=== PATIENT | male | born 1980 | race Caucasian/White ===

== ENCOUNTER → 2016-08-17 | Outpatient (CLI) | payer OTHER | END | disposition home or self-care (01) | LOC: C.LAB 16:51 | DX: Z02.83 Encounter for blood-alcohol and blood-drug test (principal) ==

== ENCOUNTER 2017-03-05 15:05 | Emergency (ER) | payer BC, OTHER ==
[~2017-03-05] VITALS: Ht 182.9 cm; Wt 91.4 kg
[2017-03-05 15:08] VITALS: TEMP 36.9; Ht 182.9 cm; Wt 91.4 kg
[2017-03-05] MEDS ORDERED: LIDOCAINE/EPINEPHRINE 1% 20 ML VIAL INFIL ONE (15:30)
--- NOTE | 2017-03-05 15:54 | EMERGENCY ROOM VISIT NOTE ---
ED Visit Note First contact with patient: 15:10 CHIEF COMPLAINT: Hand laceration HISTORY OF PRESENT ILLNESS: This 36-year-old male patient presents to the emergency department approximately 30 minutes after cutting the posterior left hand with a circular-shaped knife at work at [employer]. He states he passed out immediately after the injury, and states he slid down the wall when he passed out. He denies head or neck injury. The bleeding has not stopped. Denies weakness or numbness of the hand or fingers. The patient rates the pain as severe initially, and 0/10 now. The patient denies any other injuries. The patient's Tetanus shot is up to date. REVIEW OF SYSTEMS: A 6 system review of systems was completed with positives and pertinent negatives listed in the HPI. ALLERGIES: Amoxicillin? MEDICATIONS: None PMH: None SOCIAL HISTORY: Lives locally with family. He denies drug, alcohol use. The patient admits to current tobacco use. PHYSICAL EXAM: Vital Signs: Reviewed Nurse's notes, vital signs stable. GENERAL : This is a 36-year-old white male, in no acute distress, well-developed, well- nourished. SKIN: There is a 2 cm long laceration on the dorsal aspect of the left hand over the second metacarpal bone. This is an a half matias shape, and the skin does lie flat over the wound. The edges gape apart with traction. There is no foreign material in the wound and it looks clean. There is minimal bleeding. It does appear that the sensor tendon is severed on examination. Otherwise, no deep structures such as bones or significant blood vessels are seen in the base of the wound. Normal strength and movement of the fingers and wrist. Capillary refill less than 2 seconds. Normal sensation to light and sharp touch. EMERGENCY DEPARTMENT COURSE: I examined the patient. Verbal consent was obtained to perform the procedure. Using sterile technique the wound was cleansed with Betadine. The area was sterilely draped. 4 ml of 1% lidocaine with epinephrine was used to anesthetize the laceration on the hand. Once the patient was anesthetized, the wound was copiously irrigated under pressure with sterile saline. The wound was explored and was as described above. I did consult with orthopedics at this time due to the severed tendon. He did recommend loose sutures to close the wound, a metal splint, and follow-up in the office next week. Dr. Riggins said antibiotics are not necessary at this time with a clean cut and washing out the wound. The laceration was repaired using 5 simple interrupted 5-0 nylon sutures with the wound edges being well approximated. The patient tolerated the procedure well. Hemostasis was achieved. The area was cleaned with sterile saline and dressed with bacitracin ointment and bandage. A metal splint was applied with the finger in extension. The patient was discharged home in good condition. DIFFERENTIAL DIAGNOSIS: Laceration, contusion, tendon rupture, fracture, and others DIAGNOSIS: Hand laceration with severed tendon Current/Historical Medications No Active Prescriptions or Reported Meds Allergies Coded Allergies: No Known Allergies (Unverified , 03/05/17) Vital Signs Date Time Temp Pulse Resp B/P (MAP) Pulse Ox O2 Delivery O2 Flow Rate FiO2 03/05/17 16:04 68 18 102/67 98 Room Air 03/05/17 15:08 36.9 66 18 137/79 98 Medications Administered Medications (Trade) Dose Ordered Sig/Zay Route Start Time Stop Time Status Last Admin Dose Admin Lidocaine/ Epinephrine (Xylocaine/Epine 1% Inj) 20 ml ONE ONCE INFIL 03/05/17 15:30 03/05/17 15:31 DC 03/05/17 15:28 20 ML Departure Information Impression Primary Impression: Laceration of hand involving extensor tendon Dispostion Home / Self-Care Condition GOOD Prescriptions No Active Prescriptions or Reported Meds Referrals No Doctor, Assigned (PCP) Mamadou Riggins MD Patient Instructions ED Laceration Ext Sutr Stap Tape, ED Laceration Tendon, [facility] Additional Instructions You have received 5 sutures on your left hand. These sutures are NOT dissolvable and WILL need to be removed by a health care provider in 8-10 days ( or as recommended by Dr. Riggins). You can return to the Emergency Department or contact your Primary Care Provider to have the sutures removed. Proper wound care is essential for adequate wound healing and infection prevention. You can shower and clean the wound with soap and water. Do not scour over the wound, pat dry with a towel. Do not submerse the wound (i.e. bathe or dish wash) until the sutures have been removed. You can use an antibiotic ointment with a dressing over the wound for the next 3-4 days. After this time you may leave the wound dry and open to the air. If crust develops over the wound you can use a Q-tip to apply a 1:1 peroxide:water solution to clean the wound. Look for signs of infection of the wound including: increased pain, swelling, foul discharge, streaking, or increased temperature. If any of these are noticed you should return to the Emergency Department for further assessment and treatment. As with any laceration you may have received nerve damage to the surrounding tissues. This damage may or may not be permanent. You should keep the area covered with sunscreen for the first 6 months to 1 year when at risk for exposure to help minimize scarring. You can also use scar reducing creams or Vitamin E oil to help minimize scarring. For pain control, you can use the following [id number]-xbs-[id number] medicines (if >12 yo): Ibuprofen(Motrin, Advil) may be used for fever or pain. Use 600mg every six hours as needed. Take with food. Avoid using more than 2400mg in a 24 hour period. Do not use 2400mg per day for more than three consecutive days without physician direction. Prolonged inappropriate use can lead to stomach upset or ulcers. (AND/OR) Acetaminophen(Tylenol) may be used for fever or pain. Use 1000mg every six hours as needed. Avoid using more than 3000mg in a 24 hour period. You did sever a tendon, so will need to keep the metal splint in place until follow-up with orthopedics. If you need to remove the splint to change the bandage, you may do this, but keep your finger/hand straight and do not bend it. Please contact [facility] today to schedule a follow-up for Wednesday or Wednesday with Dr. Riggins. He is in [place] on Wednesday, and [place] on Wednesday. You have been provided with the phone number. If you have problems scheduling the appointment, please contact the Emergency Department for assistance. Return to the emergency department if your symptoms worsen despite treatment course outlined above. Work Instructions Return To Work: 3 days Problem Qualifiers Primary Impression: Laceration of hand involving extensor tendon Encounter type: initial encounter Laterality: left Qualified Codes: S61.412A - Laceration without foreign body of left hand, initial encounter
[2017-03-05 16:04] VITALS: BP 102/67; PULSE 68; O2SAT 98
== END 2017-03-05 16:57 | disposition home or self-care (01) ==
LOC: C.EDB 15:06 → C.EDD 16:57
DX: S61.412A Laceration without foreign body of left hand, initial encounter (principal); S66.321A Laceration of extensor muscle, fascia and tendon of left index finger at wrist and hand level, initial encounter; R55 Syncope and collapse; W26.0XXA Contact with knife, initial encounter; Y99.0 Civilian activity done for income or pay; F17.200 Nicotine dependence, unspecified, uncomplicated

== ENCOUNTER 2017-08-18 08:57 | Emergency (ER) | payer OTHER ==
[~2017-08-18] VITALS: Ht 182.9 cm; Wt 88.9 kg
[2017-08-18 09:17] VITALS: TEMP 36.9; Ht 182.9 cm; Wt 88.9 kg
[2017-08-18] MEDS ORDERED: CIPROFLOXACIN 500 MG TAB PO STA (09:28)
[2017-08-18] MEDS ORDERED: CEPHALEXIN MONOHYDRATE 250 MG CAP PO ONE (09:30)
--- NOTE | 2017-08-18 10:12 | DIAGNOSTIC IMAGING REPORT ---
L FOOT MIN 3 VIEWS ROUTINE CLINICAL HISTORY: 37 years-old Male presenting with L FOOT INJURY, great toe pain. TECHNIQUE: Frontal, oblique, and lateral views of the left foot were obtained. COMPARISON: None. FINDINGS: No acute fracture or malalignment. No advanced degenerative change. No radiographic soft tissue abnormality. IMPRESSION: No acute osseous injury or radiopaque foreign body. Electronically signed by: Roc Lang M.D. 08/18/2017 10:10 AM Dictated Date/Time: 08/18/2017 10:09 AM
[2017-08-18 10:47] VITALS: BP 128/85; PULSE 76; O2SAT 95
[2017-08-18] MEDS ORDERED: CEPH500C PO (10:57)
[2017-08-18] MEDS ORDERED: CIPR-255 PO (10:57)
--- NOTE | 2017-08-18 16:01 | EMERGENCY ROOM VISIT NOTE ---
History First contact with patient: 09:08 Chief Complaint: FOOT PAIN Stated Complaint: LEFT FOOT BEHIND BIG TOE PAIN - DROP METAL ON FOOT History of Present Illness The patient is a 37 year old male who presents to the Emergency Room with complaints of a puncture wound to his left foot. The patient reports that this injury happened last night around 6:40 PM. He reports that a piece of metal penetrated his boot just behind the steel toe, and cut the foot. The patient reports that he did not have any significant discomfort until last evening. The patient reports that when he awoke this morning, the pain was worse. When he got to work, he could not tolerate the pain, and took Tylenol. He now presents with complaint of mild redness of the foot. The pain is worsened with weightbearing. The patient rates his discomfort a 10 out of 10. Tetanus immunization is up-to-date. Review of Systems 10 system review was performed and was negative except for pertinent positives and negatives as indicated in history of present illness Past Medical/Surgical History Medical Problems: (1) Tobacco use disorder Surgical Problems: (1) No history of previous surgery Family History Unremarkable Social History Smoking Status: Current Every Day Smoker Alcohol Use: occasionally Marital Status: Housing Status: lives with family Occupation Status: employed Current/Historical Medications Scheduled Cephalexin Monohydrate (Keflex), 500 MG PO QID Ciprofloxacin Hcl (Cipro), 500 MG PO BID Physical Exam Vital Signs Date Time Temp Pulse Resp B/P (MAP) Pulse Ox O2 Delivery O2 Flow Rate FiO2 08/18/17 10:47 76 20 128/85 95 08/18/17 09:17 36.9 96 20 133/83 96 Room Air Physical Exam CONSTITUTIONAL: Healthy and well nourished. Alert and oriented X 3 with positive affect. Patient does not appear in any acute distress. HEENT: Normocephalic, atraumatic. Pupils equal, round and reactive. NECK: Full active range of motion without discomfort. MUSCULOSKELETAL: Examination of the left foot shows a puncture wound at the dorsal distal first metatarsal region. There is mild overriding erythema measuring approximately 3 cm in diameter. Flexion and extension of the toe worsens his discomfort. Capillary refill of the great toe is less than 2 seconds. INTEGUMENTARY: No rash or other significant dermatologic conditions noted. NEUROLOGIC: Left foot and toes are sensory intact. Medical Decision & Procedures ER Provider Diagnostic Interpretation: My interpretation of left foot x-rays does not show any acute fractures, dislocations or radiopaque foreign bodies. Radiologist report is as follows: L FOOT MIN 3 VIEWS ROUTINE CLINICAL HISTORY: 37 years-old Male presenting with L FOOT INJURY, great toe pain. TECHNIQUE: Frontal, oblique, and lateral views of the left foot were obtained. COMPARISON: None. FINDINGS: No acute fracture or malalignment. No advanced degenerative change. No radiographic soft tissue abnormality. IMPRESSION: No acute osseous injury or radiopaque foreign body. Medications Administered Medications (Trade) Dose Ordered Sig/Zay Route Start Time Stop Time Status Last Admin Dose Admin Ciprofloxacin (Cipro Tab) 500 mg NOW STAT PO 08/18/17 09:28 08/18/17 09:29 DC 08/18/17 09:47 500 MG Cephalexin Monohydrate (Keflex Cap) 500 mg NOW ONCE PO 08/18/17 09:30 08/18/17 09:31 DC 08/18/17 09:46 500 MG ED Course Patient history and physical exam were performed. Nurse's notes were reviewed. Vital signs were reviewed and were normal. The patient refused any analgesics. The patient was administered Cipro 500 mg and Keflex 500 mg orally. X-rays of the left foot were normal. The patient was fitted with crutches, and encouraged to ice and elevate the foot for swelling and pain. Ibuprofen and Tylenol in alternating fashion as needed for additional pain relief. The patient will be provided prescriptions for both Cipro and Keflex. The patient was instructed to remain nonweightbearing, and elevate the foot for swelling. The patient was instructed to follow-up with his Worker's Compensation approved orthopedic surgeon within the next 48 hours for recheck. He was instructed to return to the emergency department for any significantly worsening redness, swelling, pain or fever. The patient was happy with plan of care, voiced understanding of all discharge instructions, and rated his discomfort a 5 out of 10 at the conclusion of my exam. Medical Decision Medication Reconcilliation Current Medication List: was personally reviewed by me Blood Pressure Screening Patient's blood pressure: Normal blood pressure Impression Primary Impression: Puncture wound of left foot excluding toes with infection Additional Impression: Work related injury Departure Information Prescriptions Cephalexin Monohydrate (Keflex) 500 Mg Cap 500 MG PO QID for 7 Days, #28 CAP Prov: Freeman Cronin PA 08/18/17 Ciprofloxacin Hcl (CIPRO) 500 Mg Tab 500 MG PO BID for 7 Days, #14 TAB Prov: Freeman Cronin PA 08/18/17 Referrals No Doctor, Assigned (PCP) Patient Instructions [facility] Problem Qualifiers Primary Impression: Puncture wound of left foot excluding toes with infection Encounter type: initial encounter Qualified Codes: S91.332A - Puncture wound without foreign body, left foot, initial encounter; L08.9 - Local infection of the skin and subcutaneous tissue, unspecified
[2017-08-19] MEDS ORDERED: SUMA100T16 PO (17:11)
[2017-08-19] MEDS ORDERED: VITA10004 PO (17:11)
[2017-08-19] MEDS ORDERED: RIBO100T9 PO (17:11)
[2017-08-19] MEDS ORDERED: CYAN100T6 PO (17:11)
[2017-08-19] MEDS ORDERED: MAGN400T6 PO (17:11)
[2017-08-21] MEDS ORDERED: SULF800T23 PO (10:24)
== END 2017-08-18 11:12 | disposition home or self-care (01) ==
LOC: C.EDB 08:58
DX: S91.332A Puncture wound without foreign body, left foot, initial encounter (principal); L08.9 Local infection of the skin and subcutaneous tissue, unspecified; W20.8XXA Other cause of strike by thrown, projected or falling object, initial encounter; Y92.89 Other specified places as the place of occurrence of the external cause; Y99.0 Civilian activity done for income or pay; F17.210 Nicotine dependence, cigarettes, uncomplicated